=== PATIENT | male | born 1960 | race Caucasian/White ===

== ENCOUNTER 2022-02-17 18:11 | Emergency (ER) | payer OTHER ==
[~2022-02-17] VITALS: Ht 185.4 cm; Wt 104.5 kg
[2022-02-17] MEDS ORDERED: LISI20TA33 PO (18:49)
[2022-02-17] MEDS ORDERED: METO100T5 PO (18:49)
[2022-02-17] MEDS ORDERED: LISI20TA35 PO (18:49)
[2022-02-17 21:42] VITALS: BP 134/78
== END 2022-02-17 21:44 | disposition home or self-care (01) ==
LOC: EDBD 18:11 → M ED 18:11
DX: R07.81 Pleurodynia (principal); V49.40XA Driver injured in collision with unspecified motor vehicles in traffic accident, initial encounter; E11.9 Type 2 diabetes mellitus without complications; I10 Essential (primary) hypertension; F17.200 Nicotine dependence, unspecified, uncomplicated; Z79.899 Other long term (current) drug therapy